=== PATIENT | female | born 1965 | race Caucasian/White ===

== ENCOUNTER 2017-12-27 07:08 | Inpatient (IN) | payer MEDICARE, MEDICAID ==
[2017-12-27 08:53] LABS: #Basophils 0.2 thou/uL (0.0-0.2); #Eosinphils 0.5 thou/uL (0.0-0.7); #Lymphocytes 3.2 thou/uL (1.20-3.40); #Monocytes 0.5 thou/uL (0.11-0.59); #Neutrophils 3.7 thou/uL (1.40-6.50); %Basophils 1.9 % (0.0-1.0); %Eosinophils 6.4 % (0.0-10.0); %Lymphocytes 39.2 % (21.0-51.0); %Monocytes 6.3 % (0.0-10.0); %Neutrophils 46.2 % (42.0-75.0); Hemoglobin 13.5 g/dL (12.0-16.0); Mean Corpuscular HGB CONC 32.5 g/dL (32.0-36.0); Mean Corpuscular Hemoglobin 31.9 pg (27.0-31.0); Mean Platelet Volume 6.5 fL (7.4-10.4); Platelet Count 428 thou/uL (130-400); RBC Distribution Width 11.9 % (11.5-14.5); Red Blood Cell (RBC) Count 4.24 mill/uL (4.20-5.40); White Blood Cell (WBC) Count 8.1 thou/uL (4.8-10.8)
[2017-12-27] MEDS ORDERED: CEFAZOLIN/Water 2 GM/20 ML SYRINGE ONE (09:00)
[2017-12-27 09:31] LABS: Anion Gap 14 mmol/L (10-20); BUN (Urea Nitrogen) 28 mg/dL (9.8-20.1); Calc. Creatinine Clearance 106 mL/min (70-130); Calcium 9.6 mg/dL (7.8-10.44); Carbon Dioxide 21 mmol/L (22-29); Chloride 107 mmol/L (98-107); Estimated GFR-MDRD 59; Glucose 116 mg/dL (70-105); Potassium 4.5 mmol/L (3.5-5.1); Sodium 137 mmol/L (136-145)
[2017-12-27] MEDS ORDERED: Sodium Chloride 0.9% 10 ML ONE (09:59)
[2017-12-27] MEDS ORDERED: Bacitracin Zinc Ointment 30 gm TUBE ONE (09:59)
[2017-12-27] MEDS ORDERED: Fentanyl 100 MCG/2 ML VIAL ONE ×6 (10:17→14:55)
[2017-12-27] MEDS ORDERED: Rocuronium Bromide 50 MG/5 ML VIAL ONE (12:53)
[2017-12-27] MEDS ORDERED: PHENYLEPHRINE-NS 100 MCG/ML 10 ML SYRINGE ONE ×2 (12:54→15:09)
[2017-12-27] MEDS ORDERED: HYDROmorphone 0.5 MG/0.5 ML SYRINGE ONE (13:26)
--- NOTE | 2017-12-27 13:56 | OP ---
DATE OF PROCEDURE: 12/27/2017 SURGEON: Markel Cha M.D. CORONER FORENSIC TECHNICIAN: Violet Dubon PA-C. PROCEDURE: Anterior cervical diskectomy C3-C6, interbody arthrodesis, intravertebral biomechanical d evice, local morselized autograft, demineralized bone matrix, anterior titanium instrumentation C3-C6 ; posterior approach C3-C6 laminectomy, posterolateral arthrodesis, lateral mass screw instrumentatio n, demineralized bone matrix, and local morselized autograft C3-C6. DESCRIPTION OF PROCEDURE: The patient brought to the operating room and intubated. She was position ed supine with the head in modest extension on a gel-filled donut. Incision was made in the right pr ecervical area and dissecting medial to the sternocleidomastoid muscle. We identified the anterior c ervical spine and our level was confirmed by x-ray. We placed distraction across the disc spaces, an d found the bony substrate to be quite soft. Using the operating microscope and microdissection tech niques, we completely removed the intravertebral disks, dissecting and decompressing to the level of the spinal cord at each affected level. The bony endplates were then decorticated for the purpose of arthrodesis and appropriately sized intravertebral biomechanical PEEK device was brought into the fi eld, filled with demineralized bone matrix and local morselized autograft, and tapped into place secu rely between C3 and C6. Next, an anterior plate was brought in the field and secured to C3, C4, C5, and C6 using two 14 mm screws at each level. The wound was then extensively irrigated, immaculate he mostasis was secured, and the wound was closed in anatomic layers over a drain. Patient was then rolled in on the new operating bed in the prone position on gel-filled chest rolls w ith the head fixed in neutral position in the calvin head control clerk. A midline cervical incision was ma de exposing C3 through C6 and our level was confirmed by x-ray. We performed complete C6, complete C 5, complete C4, and complete C3 laminectomies completely decompressing the spinal cord. Lateral mass screws were then placed at right C3, right C4, right C5, and right C6 connected by rods, secured by nuts, which were final tightened. The wound was then extensively irrigated, immaculate hemostasis wa s secured. A combination of demineralized bone matrix and local morselized autograft was laid over t he left laminar and posterolateral surfaces for the purpose of arthrodesis. Vancomycin powder was ap plied and the wound was then closed in anatomic layers over a drain.
[2017-12-27] MEDS ORDERED: Ondansetron HCl/PF 4 MG/2 ML Vial ONE (15:09)
[2017-12-27] MEDS ORDERED: Lidocaine 1% PF 5 ML VIAL ONE (15:09)
[2017-12-27] MEDS ORDERED: Esmolol 100 MG/10 ML VIAL ONE (15:09)
[2017-12-27] MEDS ORDERED: Glycopyrrolate 0.2 MG/ML 5 ML SYRINGE ONE (15:09)
[2017-12-27] MEDS ORDERED: ePHEDrine/0.9% NaCl/PF SYRINGE 50 mg/10 ml ONE (15:09)
[2017-12-27] MEDS ORDERED: diphenhydrAMINE 50 MG/ML VIAL ONE (15:09)
[2017-12-27] MEDS ORDERED: Dexamethasone 20 MG/5 ML VIAL ONE (15:09)
[2017-12-27] MEDS ORDERED: Metoclopramide HCl 10 MG/2 ML VIAL ONE (15:09)
[2017-12-27] MEDS ORDERED: Propofol 200 MG/20 ML VIAL ONE (15:09)
[2017-12-27] MEDS ORDERED: Ondansetron HCl/PF 4 MG/2 ML Vial IVP PRN (16:08)
[2017-12-27] MEDS ORDERED: Promethazine HCl 25 MG/ML VIAL SLOW IVP PRN (16:08)
[2017-12-27] MEDS ORDERED: Promethazine HCl 25 MG/ML VIAL IM PRN ×2 (16:08→16:26)
[2017-12-27] MEDS ORDERED: Bisacodyl 10 MG SUPP PR PRN (16:26)
[2017-12-27] MEDS ORDERED: traMADol HCl 50 MG TAB PO PRN (16:26)
[2017-12-27] MEDS ORDERED: Mag-Al 1200 mg/1200 mg/30 ML UDCUP PO PRN (16:26)
[2017-12-27] MEDS ORDERED: HYDROcodone/Acetaminophen 10/325 mg Tablet PO PRN (16:26)
[2017-12-27] MEDS ORDERED: Promethazine HCl 12.5 MG SUPP PR PRN (16:26)
[2017-12-27] MEDS ORDERED: Promethazine 25 MG TAB PO PRN (16:26)
[2017-12-27] MEDS ORDERED: diphenhydrAMINE 50 MG/ML VIAL IVP PRN (16:26)
[2017-12-27] MEDS ORDERED: diphenhydrAMINE 25 MG CAP PO PRN (16:26)
[2017-12-27] MEDS ORDERED: Milk Of Magnesia 30 ML UDCUP PO PRN (16:26)
--- NOTE | 2017-12-27 17:08 | EKG ---
Test Reason : PREOP Blood Pressure : / mmHG Vent. Rate : 069 BPM Atrial Rate : 069 BPM P-R Int : 174 ms QRS Dur : 102 ms QT Int : 406 ms P-R-T Axes : 062 032 079 degrees QTc Int : 435 ms Normal sinus rhythm Increased R/S ratio in V1, consider early transition or posterior infarct Abnormal ECG No previous ECGs available Confirmed by DR. Zurdo NOEL ([id number]) on 12/27/2017 5:07:52 PM Referred By: GENA Confirmed By:DR. Zurdo NOEL
[2017-12-27] MEDS: Sodium Chloride 0.9% 1,000 ML IV SCH (18:49)
[2017-12-27] MEDS ORDERED: Dextrose 5% in Water 1,000 ML IV PRN (20:07)
[2017-12-27] MEDS ORDERED: Insulin Regular 300 UNITS/3 ML VIAL SC PRN ×2 (20:07)
[2017-12-27] MEDS ORDERED: Dextrose 50% Abboject 50 ML SYRINGE SLOW IVP PRN (20:07)
--- NOTE | 2017-12-27 20:07 | PDOC.PN ---
- Subjective Encounter Start Date: 12/27/17 Encounter Start Time: 20:06 Patient seen and examined. Pain controlled. No CP/SOB. - Objective Resuscitation Status: Resuscitation Status FULL:Full Resuscitation MAR Reviewed: Yes Vital Signs & Weight: Vital Signs (12 hours) Temp Pulse Resp BP Pulse Ox 12/27/17 15:10 98.3 F 97 18 123/82 96 Weight Weight 220 lb I&O: 12/26/17 12/27/17 12/28/17 06:59 06:59 06:59 Intake Total 1550 Output Total 60 Balance 1490 Result Diagrams: 12/27/17 08:40 12/27/17 08:40 EKG Reviewed by me: Yes (SR) Phys Exam - Physical Examination Constitutional: NAD Respiratory: no wheezing, no rhonchi Cardiovascular: RRR, no rub Gastrointestinal: soft, non-tender, positive bowel sounds Musculoskeletal: no edema Neurological: moves all 4 limbs Psychiatric: A&O x 3 Dx/Plan - Plan DVT proph w/SCDs IMPRESSION: 1. DM2 2. HTN 3. HLD 4. Obesity BMI 37.8 5. Anxiety/Depression PLAN: * Resume home meds. * Cont Pulse ox * Cont Metformin * Insulin sliding scale * Will follow. Thank you for this consultation Review of Systems - Review of Systems Respiratory: negative: Cough, Dry, Shortness of Breath, Hemoptysis, SOB with Excertion, Pleuritic Pain, Sputum, Wheezing Cardiovascular: negative: chest pain, palpitations, orthopnea, paroxysmal nocturnal dyspnea, edema, light headedness Gastrointestinal: negative: Nausea, Vomiting, Abdominal Pain, Diarrhea, Constipation, Melena, Hematochezia - Medications/Allergies Allergies/Adverse Reactions: Allergies Allergy/AdvReac Type Severity Reaction Status Date / Time codeine Allergy Verified 12/24/17 09:20 Medications: Current Medications Hydrocodone Bitart/Acetaminophen ([place] 10/325) 1 tab PO Q4H PRN PRN Reason: PAIN (1-3) Hydrocodone Bitart/Acetaminophen ([place] 10/325) 2 tab PO Q4H PRN PRN Reason: PAIN (4-6) Last Admin: 12/27/17 16:53 Dose: 2 tab Al Hydroxide/Mg Hydroxide (Maalox) 30 ml PO Q4H PRN PRN Reason: Heartburn or Indigestion Bisacodyl (Dulcolax) 10 mg IN Q12H PRN PRN Reason: Constipation Cefazolin Sodium (Ancef) 2 gm SLOW IVP Q8HR [facility]IJAH Diphenhydramine HCl (Benadryl) 25 mg PO Q6H PRN PRN Reason: Itching Diphenhydramine HCl (Benadryl) 25 mg IVP Q6H PRN PRN Reason: Itching Sodium Chloride (Normal Saline 0.9%) 1,000 mls @ 75 mls/hr IV .[id number] ELIJAH Last Admin: 12/27/17 18:49 Dose: Not Given Magnesium Hydroxide (Milk Of Magnesium) 30 ml PO Q12H PRN PRN Reason: Constipation Morphine Sulfate (Morphine) 2 mg SLOW IVP Q1H PRN PRN Reason: Moderate Breakthrough Pain Last Admin: 12/27/17 19:58 Dose: 2 mg Morphine Sulfate (Morphine) 2 mg SLOW IVP Q4H PRN PRN Reason: Severe Breakthrough Pain Promethazine HCl (Phenergan) 12.5 mg IM Q4H PRN PRN Reason: Nausea/Vomiting Promethazine HCl (Phenergan) 12.5 mg PO Q4H PRN PRN Reason: Nausea/Vomiting Last Admin: 12/27/17 16:53 Dose: 12.5 mg Promethazine HCl (Phenergan Suppository) 12.5 mg IN Q4H PRN PRN Reason: Nausea/Vomiting Sodium Chloride (Flush - Normal Saline) 10 ml IVF Q12HR ELIJAH Sodium Chloride (Flush - Normal Saline) 10 ml IVF PRN PRN PRN Reason: Saline Flush Tizanidine HCl (Zanaflex) 4 mg PO Q6H PRN PRN Reason: MUSCLE SPASM Tramadol HCl (Ultram) 50 mg PO Q6H PRN PRN Reason: PAIN (1-3) Tramadol HCl (Ultram) 100 mg PO Q6H PRN PRN Reason: PAIN (4-6)
[2017-12-27] MEDS: chlorproMAZINE HCl 25 MG TAB PO SCH (20:52)
[2017-12-27] MEDS: Doxepin HCl 25 MG CAP PO SCH (20:56)
[2017-12-27] MEDS: Gabapentin 400 MG CAP PO SCH (20:59)
[2017-12-27] MEDS: metFORMIN 500 MG TAB PO SCH (21:00)
[2017-12-27] MEDS: hydrOXYzine Pamoate 25 mg Capsule PO SCH (21:00)
[2017-12-27] MEDS: CEFAZOLIN/Water 2 GM/20 ML SYRINGE SLOW IVP SCH (21:01)
[2017-12-27] MEDS: carBAMazepine 200 MG TAB PO SCH (21:01)
[2017-12-27] MEDS: HYDROcodone/Acetaminophen 10/325 mg Tablet PO PRN (21:04)
[2017-12-28] MEDS: tiZANidine HCl 4 MG TAB PO PRN ×2 (00:33→23:14)
[2017-12-28] MEDS: traMADol HCl 50 MG TAB PO PRN ×3 (00:33→20:08)
[2017-12-28] MEDS: HYDROcodone/Acetaminophen 10/325 mg Tablet PO PRN ×4 (03:25→23:13)
[2017-12-28] MEDS: Sodium Chloride 0.9% 1,000 ML IV SCH ×2 (05:31→19:40)
[2017-12-28] MEDS: CEFAZOLIN/Water 2 GM/20 ML SYRINGE SLOW IVP SCH ×3 (06:22→21:11)
[2017-12-28] MEDS: chlorproMAZINE HCl 25 MG TAB PO SCH ×2 (08:59→20:13)
[2017-12-28] MEDS: Venlafaxine HCl XR 75 MG CAP PO SCH (08:59)
[2017-12-28] MEDS: Lisinopril 20 MG TAB PO SCH (09:04)
[2017-12-28] MEDS: Gabapentin 400 MG CAP PO SCH ×4 (09:04→20:11)
[2017-12-28] MEDS: carBAMazepine 200 MG TAB PO SCH ×2 (09:04→20:11)
[2017-12-28] MEDS: hydrOXYzine Pamoate 25 mg Capsule PO SCH ×3 (09:04→20:09)
[2017-12-28] MEDS: metFORMIN 500 MG TAB PO SCH ×2 (09:04→20:15)
--- NOTE | 2017-12-28 19:14 | PDOC.PN ---
- Subjective Encounter Start Date: 12/28/17 Encounter Start Time: 18:15 Patient seen and examined. No new complaints. No overnight events - Objective Resuscitation Status: Resuscitation Status FULL:Full Resuscitation MAR Reviewed: Yes Vital Signs & Weight: Vital Signs (12 hours) Temp Pulse Pulse Resp BP BP Pulse Ox 12/28/17 16:05 97.8 F 107 H 18 90/58 L 95 12/28/17 12:00 98.3 F 105 H 20 116/72 98 12/28/17 10:41 106 H 95/55 L 12/28/17 08:00 98.0 F 97 18 12/28/17 07:35 98.0 F 97 18 96/63 96 Pulse Ox 12/28/17 16:05 12/28/17 12:00 12/28/17 10:41 96 12/28/17 08:00 12/28/17 07:35 Weight Weight 220 lb I&O: 12/27/17 12/28/17 12/29/17 06:59 06:59 06:59 Intake Total 1550 Output Total 165 Balance 1385 Result Diagrams: 12/27/17 08:40 12/27/17 08:40 Additional Labs: Accuchecks 12/28/17 12/28/17 12/28/17 17:26 11:22 05:29 POC Glucose 241 H 176 H 150 H 12/27/17 20:58 POC Glucose 224 H Phys Exam - Physical Examination Constitutional: NAD Respiratory: no wheezing, no rhonchi Cardiovascular: RRR, no rub Gastrointestinal: soft, non-tender, positive bowel sounds Musculoskeletal: no edema Dx/Plan - Plan DVT proph w/SCDs IMPRESSION: 1. DM2 2. HTN 3. HLD 4. Obesity BMI 37.8 5. Anxiety/Depression PLAN: * Cont current meds as below * Cont Metformin with sliding scale * Cont to monitor * Change diet to diabetic * Will consider adding Levemir or Glipizide in AM if sugars elevated Review of Systems - Review of Systems Respiratory: negative: Cough, Dry, Shortness of Breath, Hemoptysis, SOB with Excertion, Pleuritic Pain, Sputum, Wheezing Cardiovascular: negative: chest pain, palpitations, orthopnea, paroxysmal nocturnal dyspnea, edema, light headedness - Medications/Allergies Allergies/Adverse Reactions: Allergies Allergy/AdvReac Type Severity Reaction Status Date / Time codeine Allergy Verified 12/24/17 09:20 Medications: Current Medications Hydrocodone Bitart/Acetaminophen ([place] 10/325) 1 tab PO Q4H PRN PRN Reason: PAIN (1-3) Last Admin: 12/28/17 18:25 Dose: 1 tab Al Hydroxide/Mg Hydroxide (Maalox) 30 ml PO Q4H PRN PRN Reason: Heartburn or Indigestion Bisacodyl (Dulcolax) 10 mg MS Q12H PRN PRN Reason: Constipation Carbamazepine (Tegretol) 200 mg PO BID [facility] Last Admin: 12/28/17 09:04 Dose: 200 mg Cefazolin Sodium (Ancef) 2 gm SLOW IVP Q8HR [facility] Last Admin: 12/28/17 14:45 Dose: 2 gm Chlorpromazine HCl (Thorazine) 200 mg PO BID [facility] Last Admin: 12/28/17 08:59 Dose: 200 mg Dextrose/Water (Dextrose 50%) 25 gm SLOW IVP PRN PRN PRN Reason: Hypoglycemia Diphenhydramine HCl (Benadryl) 25 mg PO Q6H PRN PRN Reason: Itching Doxepin HCl (Sinequan) 100 mg PO HS [facility] Last Admin: 12/27/17 20:56 Dose: 100 mg Gabapentin (Neurontin) 800 mg PO QID [facility] Last Admin: 12/28/17 18:22 Dose: 800 mg Glucagon (Glucagon) 1 mg IM PRN PRN PRN Reason: Hypoglycemia Hydroxyzine Pamoate (Vistaril) 100 mg PO TID [facility] Last Admin: 12/28/17 14:46 Dose: 100 mg Sodium Chloride (Normal Saline 0.9%) 1,000 mls @ 75 mls/hr IV .[id number] [facility] Last Admin: 12/28/17 05:31 Dose: Not Given Dextrose/Water (D5w) 1,000 mls @ 0 mls/hr IV .Q0M PRN; As Directed PRN Reason: Hypoglycemia Insulin Human Regular (Humulin R) 0 units SC .MILD SLIDING SCALE PRN PRN Reason: Mild Correctional Scale Insulin Human Regular (Humulin R) 0 units SC .BEDTIME SLIDING SC PRN PRN Reason: Bedtime Correctional Scale Lisinopril (Zestril) 40 mg PO QAM [facility] Last Admin: 12/28/17 09:04 Dose: 40 mg Magnesium Hydroxide (Milk Of Magnesium) 30 ml PO Q12H PRN PRN Reason: Constipation Metformin HCl (Glucophage) 500 mg PO BID [facility] Last Admin: 12/28/17 09:04 Dose: 500 mg Morphine Sulfate (Morphine) 2 mg SLOW IVP Q1H PRN PRN Reason: Moderate Breakthrough Pain Last Admin: 12/28/17 11:41 Dose: 2 mg Morphine Sulfate (Morphine) 2 mg SLOW IVP Q4H PRN PRN Reason: Severe Breakthrough Pain Promethazine HCl (Phenergan) 12.5 mg IM Q4H PRN PRN Reason: Nausea/Vomiting Promethazine HCl (Phenergan) 12.5 mg PO Q4H PRN PRN Reason: Nausea/Vomiting Last Admin: 12/27/17 16:53 Dose: 12.5 mg Promethazine HCl (Phenergan Suppository) 12.5 mg MS Q4H PRN PRN Reason: Nausea/Vomiting Sodium Chloride (Flush - Normal Saline) 10 ml IVF Q12HR [facility] Last Admin: 12/28/17 09:09 Dose: 10 ml Sodium Chloride (Flush - Normal Saline) 10 ml IVF PRN PRN PRN Reason: Saline Flush Tizanidine HCl (Zanaflex) 4 mg PO Q6H PRN PRN Reason: MUSCLE SPASM Last Admin: 12/28/17 00:33 Dose: 4 mg Tramadol HCl (Ultram) 50 mg PO Q6H PRN PRN Reason: PAIN (1-3) Tramadol HCl (Ultram) 100 mg PO Q6H PRN PRN Reason: PAIN (4-6) Last Admin: 12/28/17 09:03 Dose: 100 mg Venlafaxine [facility] (Effexor Xr) [facility] Last Admin: 12/28/17 08:59 Dose: 75 mg
[2017-12-28] MEDS: Doxepin HCl 25 MG CAP PO SCH (20:12)
[2017-12-29] MEDS: traMADol HCl 50 MG TAB PO PRN ×2 (01:52→08:29)
[2017-12-29] MEDS: HYDROcodone/Acetaminophen 10/325 mg Tablet PO PRN (05:37)
[2017-12-29] MEDS: CEFAZOLIN/Water 2 GM/20 ML SYRINGE SLOW IVP SCH ×3 (06:29→21:14)
[2017-12-29] MEDS: Lisinopril 20 MG TAB PO SCH (08:28)
[2017-12-29] MEDS: hydrOXYzine Pamoate 25 mg Capsule PO SCH (08:28)
[2017-12-29] MEDS: chlorproMAZINE HCl 25 MG TAB PO SCH (08:28)
[2017-12-29] MEDS: Venlafaxine HCl XR 75 MG CAP PO SCH (08:28)
[2017-12-29] MEDS: Gabapentin 400 MG CAP PO SCH ×2 (08:29→16:35)
[2017-12-29] MEDS: metFORMIN 500 MG TAB PO SCH (08:29)
[2017-12-29] MEDS: carBAMazepine 200 MG TAB PO SCH (08:29)
[2017-12-29] MEDS: Sodium Chloride 0.9% 1,000 ML IV SCH ×3 (10:05→22:35)
[2017-12-29] MEDS ORDERED: Naloxone HCl 0.4 mg/ml Vial ONE (14:11)
[2017-12-29 14:17] LABS: Actual Bicarbonate (HCO3a) 27.2 mEq/L (22-26); Base Excess (BEa) 0.9 mEq/L (0 (+/-) 2.5); CO2 Tension 51.6 mmHg (35.0-45.0); Hematocrit-ABG 37.3 % (36.0-47.0); Hemoglobin (Hb) 10.4 g/dL (12.0-16.0); O2 Tension (PaO2) 56.2 mmHg (80.0-100.0); pH, Arterial 7.34 (7.35-7.45)
[2017-12-29 14:18] LABS: Analyzer IN Cardio ER; Calcium, Ionized 1.2 mmol/L (1.12-1.30); Puncture Site RRA
[2017-12-29] MEDS ORDERED: Acetaminophen 325 MG TAB PO PRN (14:33)
[2017-12-29] MEDS ORDERED: Acetaminophen 650 MG Suppository PR PRN (14:33)
[2017-12-29 14:40] LABS: #Basophils 0.1 thou/uL (0.0-0.2); #Eosinphils 0.1 thou/uL (0.0-0.7); #Lymphocytes 2.4 thou/uL (1.20-3.40); #Monocytes 1.4 thou/uL (0.11-0.59); #Neutrophils 6.6 thou/uL (1.40-6.50); %Basophils 0.9 % (0.0-1.0); %Eosinophils 1.2 % (0.0-10.0); %Monocytes 12.7 % (0.0-10.0); %Neutrophils 62.1 % (42.0-75.0); Hemoglobin 11.3 g/dL (12.0-16.0); Mean Corpuscular HGB CONC 32.8 g/dL (32.0-36.0); Mean Corpuscular Volume 97.7 fl (81.0-99.0); Mean Platelet Volume 6.4 fL (7.4-10.4); Platelet Count 299 thou/uL (130-400); RBC Distribution Width 11.6 % (11.5-14.5); Red Blood Cell (RBC) Count 3.53 mill/uL (4.20-5.40); White Blood Cell (WBC) Count 10.6 thou/uL (4.8-10.8)
[2017-12-29] MEDS ORDERED: Sodium Chloride 0.9% 1,000 ML IV SCH (14:45)
[2017-12-29 14:51] LABS: ALT (SGPT) 34 U/L (8-55); AST (SGOT) 21 U/L (5-34); Albumin 3.8 g/dL (3.5-5.0); Alkaline Phosphatase 59 U/L (40-150); Anion Gap 11 mmol/L (10-20); BUN (Urea Nitrogen) 16 mg/dL (9.8-20.1); Bilirubin, Total 0.3 mg/dL (0.2-1.2); Calc. Creatinine Clearance 110 mL/min (70-130); Calcium 8.9 mg/dL (7.8-10.44); Carbon Dioxide 28 mmol/L (22-29); Chloride 99 mmol/L (98-107); Estimated GFR-MDRD 62; Globulin 2.2 g/dL (2.4-3.5); Glucose 193 mg/dL (70-105); Magnesium 1.6 mg/dL (1.6-2.6); Potassium 4.8 mmol/L (3.5-5.1); Sodium 133 mmol/L (136-145)
[2017-12-29 15:01] LABS: Troponin I Less than 0.010 ng/mL (< 0.028)
[2017-12-29 15:12] VITALS: BMI 38.2
--- NOTE | 2017-12-29 15:34 | RAD ---
PORTABLE AP CHEST XRAY: DATE: 12/29/17. HISTORY: Altered mental status. Post Code Green. COMPARISON: None available. FINDINGS: Cardiac silhouette is magnified by projection. Pulmonary vasculature is within normal limits. There is mild atelectasis present at the right lung base. Lungs are otherwise clear. Remote bilateral ri b fractures are present. Postsurgical changes of the lower cervical spine are noted. Surgical clips overlie the right upper quadrant. IMPRESSION: 1. No acute cardiopulmonary process. 2. Atelectasis right lung base. 3. Remote bilateral rib fractures. POS: [facility]
--- NOTE | 2017-12-29 16:59 | CON ---
DATE OF CONSULTATION: 12/29/2017 SERVICE: Pulmonary Medicine. REASON FOR CONSULTATION: Respiratory failure. HISTORY OF PRESENT ILLNESS: Patient is a 52-year-old white female who recently underwent an elective operation on 12/27/2017. The postop course was uncomplicated. This is a neck surgery and she underwent anterior cervical diskectomy and posterior approach laminectomy of C3-C6. There is titanium instrumentation. She is being considered for discharge today. She was having some neck discomfort this morning and she got a small dose of tramadol. Later on, she was difficult to arouse and little confused. An ABG demonstrated acute hypercapnic respiratory failure and she was subsequently brought to the ICU. She is a little bit sleepy, but when you wake her up, she is fully awake and oriented. She denies any current shortness of breath, chest pain. She is coughing. She is bringing up a little bit of clear sputum. Outside of this, there has been no interval change to her condition. PAST MEDICAL HISTORY: 1. Hypertension. 2. Dyslipidemia. 3. Type 2 diabetes mellitus. 4. Anxiety disorder. 5. Major depressive disorder. PAST SURGICAL HISTORY: 1. Hysterectomy. 2. Appendectomy. 3. section. 4. Tubal ligation. 5. Foot surgeries, bilateral. 6. Hemorrhoidectomy. 7. Neck surgery, postop day #2. FAMILY HISTORY: Noncontributory. SOCIAL HISTORY: Unknown, patient is not able to provide this history at this time. ALLERGIES: CODEINE. MEDICATIONS: List of her outpatient medications were reviewed and include doxepin, gabapentin, hydrocodone, lisinopril, meloxicam, venlafaxine, carbamazepine, chlorpromazine, hydroxyzine, and metformin. REVIEW OF SYSTEMS: This cannot be obtained because patient's increasing level of sleepiness. PHYSICAL EXAMINATION: VITAL SIGNS: Afebrile with a T-max of 99.1, pulse 119, blood pressure 80/52, respirations 20, saturations 99% on 2 liters nasal cannula after coughing up a mucus plug. HEENT: Normocephalic, atraumatic. Sclerae are white, conjunctivae pink. Oral mucosa is moist without lesions. LUNGS: Decent air entry. Rhonchi are present. There is expiratory wheezing, but it is coming from a large airway. No rhonchi or crackles are appreciated. HEART: Normal rate, regular. ABDOMEN: Soft, nontender, and nondistended. Bowel sounds are positive. MUSCULOSKELETAL: No cyanosis or clubbing. There is no pitting in the bilateral lower extremities. NEUROLOGIC: Grossly nonfocal. LABORATORY DATA: WBC 10.6, hemoglobin 11.3, and platelets 299,000. PH 7.34, pCO2 51, pO2 56. This corresponds with saturation of 89% on 3 liters nasal cannula. Sodium 133. Basic metabolic profile and liver function studies are otherwise unremarkable. Troponin is negative, ammonia is normal. Specifically , BUN is normal at 16. IMAGING: Chest x-ray demonstrates atelectasis of the right lower lobe. Remote bilateral rib fractures. No acute cardiopulmonary abnormalities otherwise identified. ASSESSMENT: 1. Acute hypoxic and hypercapnic respiratory failure. 2. Metabolic encephalopathy. 3. Type 2 diabetes mellitus DISCUSSION AND PLAN: The patient's oxygen saturation abruptly improved after she coughed up a plug of mucus. We have her back on room air right now. She remains a little bit extra sleepy. She is demonstrating asterixis. Ammonia level was normal. Her BUN was also normal. My suspicion is that we are dealing with an acute hypercapnia. Hopefully, this will clear in a very brief period of time. We will avoid any type of sedating medications. She will be watched in the ICU closely over the next 24 hours. If she becomes increasingly somnolent, BiPAP will be attempted, but ultimately, she may require intubation. Pulmonary or Critical Care will continue to follow. 70 minutes have been devoted to this patient in various activities. I personally reviewed all imaging studies and laboratory data noted within this document. For greater than fifty percent of this time, I was interacting with the patient at the bedside or coordinating care with the care team. For the remainder of the time I was immediately available to the patient in the hospital unit. VANESSA
--- NOTE | 2017-12-29 23:32 | PDOC.PN ---
- Subjective Encounter Start Date: 12/29/17 Encounter Start Time: 15:00 Patient seen and examined during code green - lethargic - following commands. Responded to Narcan. No overnight events - Objective Resuscitation Status: Resuscitation Status FULL:Full Resuscitation MAR Reviewed: Yes Vital Signs & Weight: Vital Signs (12 hours) Temp Pulse Pulse Pulse Pulse Pulse Resp 12/29/17 20:00 98.7 F 111 H 17 12/29/17 18:42 114 H 20 12/29/17 16:00 99.9 F H 12/29/17 14:30 98.2 F 118 H 17 12/29/17 14:25 12/29/17 14:01 120 H 128 H 119 H 109 H 12/29/17 12:00 99.1 F 119 H 20 Resp Resp Resp Resp BP BP BP 12/29/17 20:00 12/29/17 18:42 12/29/17 16:00 12/29/17 14:30 12/29/17 14:25 12/29/17 14:01 18 18 16 18 80/52 L 94/60 91/47 L 12/29/17 12:00 BP BP Pulse Ox Pulse Ox Pulse Ox Pulse Ox 12/29/17 20:00 95 12/29/17 18:42 99 12/29/17 16:00 12/29/17 14:30 100 12/29/17 14:25 99 12/29/17 14:01 85/59 L 86 L 93 L 99 12/29/17 12:00 92/50 L 89 L Weight Weight 222 lb 7.143 oz Most Recent Monitor Data Heart Rate from ECG 105 NIBP 104/61 NIBP BP-Mean 76 Respiration from ECG 15 SpO2 97 I&O: 12/28/17 12/29/17 12/30/17 06:59 06:59 06:59 Intake Total 1550 766 Output Total 165 825 Balance 1385 -59 Result Diagrams: 12/30/17 04:15 12/30/17 04:15 Additional Labs: Accuchecks 12/29/17 12/29/17 12/29/17 21:23 17:08 13:58 POC Glucose 150 H 190 H 189 H 12/29/17 12/29/17 11:32 05:56 POC Glucose 178 H 158 H Phys Exam - Physical Examination Pt is lethargic Respiratory: no wheezing, no rhonchi Cardiovascular: RRR, no rub Gastrointestinal: soft, non-tender, positive bowel sounds Musculoskeletal: no edema Neuro - No new focal deficits. Dx/Plan - Plan DVT proph w/SCDs IMPRESSION: 1. s/p Code Green for Encephalopathy/Acute hypoxic & hypercapnic respiratory failure - prob due to home meds/tramadol. Unclear if patient took some of her home meds 2. HTN 3. HLD 4. Obesity BMI 37.8 5. Anxiety/Depression 6. DM2 PLAN: * Hold all of her home meds * Transfer to CCU for close monitoring * NIPPV * Consult Critical care * Cont other meds as below * Cont Metformin with sliding scale Review of Systems - Review of Systems Other: Cannot obtain due to current mentation - Medications/Allergies Allergies/Adverse Reactions: Allergies Allergy/AdvReac Type Severity Reaction Status Date / Time codeine Allergy Verified 12/24/17 09:20 Medications: Current Medications Acetaminophen (Tylenol) 650 mg PO Q4H PRN PRN Reason: Headache/Fever or Mild Pain Last Admin: 12/29/17 21:13 Dose: 650 mg Acetaminophen (Tylenol) 650 mg NC Q4H PRN PRN Reason: Headache/Fever or Pain Hydrocodone Bitart/Acetaminophen ([place] 10/325) 1 tab PO Q4H PRN PRN Reason: PAIN (1-3) Last Admin: 12/29/17 05:37 Dose: 1 tab Al Hydroxide/Mg Hydroxide (Maalox) 30 ml PO Q4H PRN PRN Reason: Heartburn or Indigestion Albuterol/Ipratropium (Duoneb) 3 ml NEB [id number] [facility] Last Admin: 12/29/17 18:42 Dose: 3 ml Albuterol/Ipratropium (Duoneb) 3 ml NEB [id number] PRN PRN Reason: SOB &/or Wheezing Bisacodyl (Dulcolax) 10 mg NC Q12H PRN PRN Reason: Constipation Cefazolin Sodium (Ancef) 2 gm SLOW IVP Q8HR [facility] Last Admin: 12/29/17 21:14 Dose: 2 gm Dextrose/Water (Dextrose 50%) 25 gm SLOW IVP PRN PRN PRN Reason: Hypoglycemia Diphenhydramine HCl (Benadryl) 25 mg PO Q6H PRN PRN Reason: Itching Glucagon (Glucagon) 1 mg IM PRN PRN PRN Reason: Hypoglycemia Dextrose/Water (D5w) 1,000 mls @ 0 mls/hr IV .Q0M PRN; As Directed PRN Reason: Hypoglycemia Sodium Chloride (Normal Saline 0.9%) 1,000 mls @ 150 mls/hr IV .Q6H40M [facility] Last Admin: 12/29/17 22:35 Dose: 1,000 mls Insulin Human Regular (Humulin R) 0 units SC .MILD SLIDING SCALE PRN PRN Reason: Mild Correctional Scale Last Admin: 12/28/17 19:23 Dose: 3 unit Insulin Human Regular (Humulin R) 0 units SC .BEDTIME SLIDING SC PRN PRN Reason: Bedtime Correctional Scale Magnesium Hydroxide (Milk Of Magnesium) 30 ml PO Q12H PRN PRN Reason: Constipation Morphine Sulfate (Morphine) 2 mg SLOW IVP Q1H PRN PRN Reason: Moderate Breakthrough Pain Last Admin: 12/28/17 11:41 Dose: 2 mg Sodium Chloride (Flush - Normal Saline) 10 ml IVF Q12HR [facility] Last Admin: 12/29/17 22:36 Dose: 10 ml Sodium Chloride (Flush - Normal Saline) 10 ml IVF PRN PRN PRN Reason: Saline Flush
[2017-12-30] MEDS: HYDROcodone/Acetaminophen 10/325 mg Tablet PO PRN ×5 (01:59→18:44)
[2017-12-30] MEDS: Sodium Chloride 0.9% 1,000 ML IV SCH ×3 (04:23→20:59)
[2017-12-30 04:58] LABS: #Basophils 0.1 thou/uL (0.0-0.2); #Eosinphils 0.3 thou/uL (0.0-0.7); #Lymphocytes 2.3 thou/uL (1.20-3.40); #Monocytes 1.1 thou/uL (0.11-0.59); #Neutrophils 5.8 thou/uL (1.40-6.50); %Basophils 1.4 % (0.0-1.0); %Eosinophils 2.6 % (0.0-10.0); %Lymphocytes 24.1 % (21.0-51.0); %Monocytes 11.7 % (0.0-10.0); %Neutrophils 60.2 % (42.0-75.0); Hemoglobin 10.2 g/dL (12.0-16.0); Mean Corpuscular Hemoglobin 31.8 pg (27.0-31.0); Mean Corpuscular Volume 99.4 fl (81.0-99.0); Mean Platelet Volume 7.2 fL (7.4-10.4); Platelet Count 282 thou/uL (130-400); RBC Distribution Width 11.7 % (11.5-14.5); White Blood Cell (WBC) Count 9.7 thou/uL (4.8-10.8)
[2017-12-30] MEDS: CEFAZOLIN/Water 2 GM/20 ML SYRINGE SLOW IVP SCH (05:03)
[2017-12-30 05:28] LABS: ALT (SGPT) 22 U/L (8-55); AST (SGOT) 16 U/L (5-34); Albumin 3.4 g/dL (3.5-5.0); Alkaline Phosphatase 51 U/L (40-150); Anion Gap 12 mmol/L (10-20); BUN (Urea Nitrogen) 11 mg/dL (9.8-20.1); Bilirubin, Total 0.3 mg/dL (0.2-1.2); Calc. Creatinine Clearance 151 mL/min (70-130); Carbon Dioxide 23 mmol/L (22-29); Chloride 104 mmol/L (98-107); Estimated GFR-MDRD 88; Globulin 2.6 g/dL (2.4-3.5); Glucose 143 mg/dL (70-105); Potassium 4.4 mmol/L (3.5-5.1); Sodium 135 mmol/L (136-145)
[2017-12-30] MEDS ORDERED: Morphine 4 MG/ML Carpuject SLOW IVP PRN (11:15)
--- NOTE | 2017-12-30 14:55 | PRG ---
DATE OF SERVICE: 12/30/2017 SERVICE: Pulmonary Medicine. INTERVAL HISTORY: The patient is doing fine from a cardiovascular and respiratory standpoint. She i s awake and alert. She is on room air. She denies any current fevers, chills, nausea or vomiting. She is having no disorientation today. Otherwise, she is returning to her usual state of health. OBJECTIVE: VITAL SIGNS: Afebrile, pulse 104, blood pressure 138/71, respirations 20, saturation 100% on room ai r. GENERAL: The patient is awake, alert, no apparent distress. LUNGS: Decent air entry. There are no rhonchi or wheezing present today. HEART: Normal rate, regular. ABDOMEN: Soft, nontender, nondistended. Bowel sounds are positive. MUSCULOSKELETAL: No cyanosis or clubbing. No pitting in the bilateral lower extremities. NEUROLOGIC: Grossly nonfocal. LABORATORY DATA: WBC 9.7, hemoglobin 10.2, platelets 282,000. Basic metabolic profile and liver fun ction studies are essentially unremarkable. The sodium is improving to 153. IMAGING: Chest x-ray demonstrates no acute cardiopulmonary abnormality other than some right lower l obe atelectasis. ASSESSMENT: 1. Acute hypoxic and hypercapnic respiratory failure, likely resolved. 2. Metabolic encephalopathy, resolved. 3. Type 2 diabetes mellitus. 4. Obstructive sleep apnea, suspected. DISCUSSION AND PLAN: The patient is doing fine from a cardiovascular and respiratory standpoint. At this point, I do believe that she is stable for transition out of the hospital Pulmonary Critical C are will continue to follow if she remains in this location, however. She can follow up with me in t outpatient setting to workup sleep apnea if she so desires. She screen strongly positive for this diagnosis.
--- NOTE | 2017-12-30 21:29 | PDOC.PN ---
- Subjective Encounter Start Date: 12/30/17 Encounter Start Time: 15:00 Patient seen and examined. No new complaints. No overnight events. Mentation impoved. - Objective Resuscitation Status: Resuscitation Status FULL:Full Resuscitation MAR Reviewed: Yes Vital Signs & Weight: Vital Signs (12 hours) Temp Pulse Resp BP Pulse Ox 12/30/17 20:00 97.7 F 81 19 133/64 94 L 12/30/17 18:32 92 20 98 12/30/17 16:00 98.0 F 12/30/17 15:39 78 20 100 12/30/17 12:35 104 H 20 100 12/30/17 12:00 98.4 F Weight Weight 221 lb 5.506 oz Most Recent Monitor Data Heart Rate from ECG 97 NIBP 130/78 NIBP BP-Mean 85 Respiration from ECG 15 SpO2 97 I&O: 12/29/17 12/30/17 12/31/17 06:59 06:59 06:59 Intake Total 2360 250 Output Total 2100 1850 Balance 260 -1600 Result Diagrams: 12/30/17 04:15 12/30/17 04:15 Additional Labs: Accuchecks 12/30/17 12/30/17 12/30/17 16:49 11:19 05:18 POC Glucose 151 H 154 H 161 H 12/29/17 21:23 POC Glucose 150 H Phys Exam - Physical Examination Constitutional: NAD Respiratory: no wheezing, no rhonchi Cardiovascular: RRR, no rub Gastrointestinal: soft, non-tender, positive bowel sounds Musculoskeletal: no edema Neurological: moves all 4 limbs Dx/Plan - Plan DVT proph w/SCDs IMPRESSION: 1. s/p Code Green for Encephalopathy/Acute hypoxic & hypercapnic respiratory failure - prob due to home meds/tramadol. Unclear if patient took some of her home meds 2. HTN 3. HLD 4. Obesity BMI 37.8 5. Anxiety/Depression 6. DM2 7. Suspected sleep apnea PLAN: * Will resume home meds in AM if stable * Critical care ellipta * Cont other meds as below * Cont Metformin with sliding scale Review of Systems - Review of Systems Respiratory: negative: Cough, Dry, Shortness of Breath, Hemoptysis, SOB with Excertion, Pleuritic Pain, Sputum, Wheezing Cardiovascular: negative: chest pain, palpitations, orthopnea, paroxysmal nocturnal dyspnea, edema, light headedness Gastrointestinal: negative: Nausea, Vomiting, Abdominal Pain, Diarrhea, Constipation, Melena, Hematochezia - Medications/Allergies Allergies/Adverse Reactions: Allergies Allergy/AdvReac Type Severity Reaction Status Date / Time codeine Allergy Verified 12/24/17 09:20 Medications: Current Medications Acetaminophen (Tylenol) 650 mg PO Q4H PRN PRN Reason: Headache/Fever or Mild Pain Last Admin: 12/29/17 21:13 Dose: 650 mg Acetaminophen (Tylenol) 650 mg FL Q4H PRN PRN Reason: Headache/Fever or Pain Hydrocodone Bitart/Acetaminophen (Gillespie 10/325) 1 tab PO Q4H PRN PRN Reason: PAIN (1-3) Last Admin: 12/30/17 18:44 Dose: 1 tab Al Hydroxide/Mg Hydroxide (Maalox) 30 ml PO Q4H PRN PRN Reason: Heartburn or Indigestion Albuterol/Ipratropium (Duoneb) 3 ml NEB [id number] [facility] Last Admin: 12/30/17 18:32 Dose: 3 ml Albuterol/Ipratropium (Duoneb) 3 ml NEB [id number] PRN PRN Reason: SOB &/or Wheezing Bisacodyl (Dulcolax) 10 mg FL Q12H PRN PRN Reason: Constipation Dextrose/Water (Dextrose 50%) 25 gm SLOW IVP PRN PRN PRN Reason: Hypoglycemia Diphenhydramine HCl (Benadryl) 25 mg PO Q6H PRN PRN Reason: Itching Glucagon (Glucagon) 1 mg IM PRN PRN PRN Reason: Hypoglycemia Dextrose/Water (D5w) 1,000 mls @ 0 mls/hr IV .Q0M PRN; As Directed PRN Reason: Hypoglycemia Sodium Chloride (Normal Saline 0.9%) 1,000 mls @ 75 mls/hr IV .[id number] [facility] Last Admin: 12/30/17 20:59 Dose: 1,000 mls Insulin Human Regular (Humulin R) 0 units SC .MILD SLIDING SCALE PRN PRN Reason: Mild Correctional Scale Last Admin: 12/28/17 19:23 Dose: 3 unit Insulin Human Regular (Humulin R) 0 units SC .BEDTIME SLIDING SC PRN PRN Reason: Bedtime Correctional Scale Magnesium Hydroxide (Milk Of Magnesium) 30 ml PO Q12H PRN PRN Reason: Constipation Morphine Sulfate (Morphine Sulfate) 2 mg SLOW IVP Q1H PRN PRN Reason: Moderate Breakthrough Pain Sodium Chloride (Flush - Normal Saline) 10 ml IVF Q12HR ELIJAH Last Admin: 12/30/17 20:59 Dose: 10 ml Sodium Chloride (Flush - Normal Saline) 10 ml IVF PRN PRN PRN Reason: Saline Flush
[2017-12-30] MEDS ORDERED: Senokot S 8.6-50 MG TAB PO SCH (21:45)
[2017-12-31] MEDS: HYDROcodone/Acetaminophen 10/325 mg Tablet PO PRN ×3 (00:58→10:13)
[2017-12-31] MEDS ORDERED: Senokot S 8.6-50 MG TAB PO SCH (09:00)
[2017-12-31 12:26] VITALS: BP 165/110; TEMP 98.4
--- NOTE | 2017-12-31 15:41 | PRG ---
DATE OF SERVICE: 12/31/2017 SERVICE: Pulmonary Medicine. INTERVAL HISTORY: The patient is doing fantastic from a breathing standpoint. She denies any curren t fevers, chills, nausea or vomiting. She has been up walking the hallways. She had a dressing lozada ge today and this provided her with a little bit of discomfort, but outside of that, she is not havin g any pain. PHYSICAL EXAMINATION: VITAL SIGNS: Afebrile. Pulse 86, blood pressure 165/110, respirations 15 and saturation 97% on room air. GENERAL: The patient is awake and alert in no apparent distress. LUNGS: Excellent air entry with no prolonged expiratory phase, wheezing, rhonchi or crackles. HEART: Normal rate and regular. ABDOMEN: Soft, nontender and nondistended. Bowel sounds are positive. MUSCULOSKELETAL: No cyanosis or clubbing. There is no pitting in the bilateral lower extremities. NEUROLOGIC: Grossly nonfocal. ASSESSMENT: 1. Metabolic encephalopathy, resolved. 2. Acute hypoxic and hypercapnic respiratory failure, resolved. 3. Type 2 diabetes mellitus. 4. Obstructive sleep apnea, suspected. DISCUSSION AND PLAN: The patient remains hemodynamically stable for transition out of the hospital. From a respiratory standpoint, she is doing fantastic. She has no additional inpatient requirements for pulmonary critical care opinion and I will sign off. Call with additional questions or concerns . I have her return to clinic in 2-4 weeks in the outpatient setting to formally evaluate for sleep apnea.
== END 2017-12-31 13:14 | disposition home or self-care (01) | DRG 453 ==
LOC: SURG A 07:08 → CCU 12-29 14:25 → SURG B 12-30 17:50
PROVIDERS: ADMIT Neurological Surgery; ATTEND Neurological Surgery
PROC: 0RG20A0 Fusion of 2 or more Cervical Vertebral Joints with Interbody Fusion Device, Anterior Approach, Anterior Column, Open Approach (ICD-10-PCS; principal; 2017-12-27)
PROC: 0RG20K1 Fusion of 2 or more Cervical Vertebral Joints with Nonautologous Tissue Substitute, Posterior Approach, Posterior Column, Open Approach (ICD-10-PCS; 2017-12-27)
PROC: 00NW0ZZ Release Cervical Spinal Cord, Open Approach (ICD-10-PCS; 2017-12-27)
PROC: 0RT30ZZ Resection of Cervical Vertebral Disc, Open Approach (ICD-10-PCS; 2017-12-27)
DX: M47.12 Other spondylosis with myelopathy, cervical region (principal); G93.41 Metabolic encephalopathy; J96.01 Acute respiratory failure with hypoxia; J96.02 Acute respiratory failure with hypercapnia; M50.021 Cervical disc disorder at C4-C5 level with myelopathy; M48.02 Spinal stenosis, cervical region; E11.9 Type 2 diabetes mellitus without complications; G47.33 Obstructive sleep apnea (adult) (pediatric); I10 Essential (primary) hypertension; E78.5 Hyperlipidemia, unspecified; F41.9 Anxiety disorder, unspecified; F32.9 Major depressive disorder, single episode, unspecified; Z88.5 Allergy status to narcotic agent; F17.210 Nicotine dependence, cigarettes, uncomplicated; E66.9 Obesity, unspecified; Z68.37 Body mass index [BMI] 37.0-37.9, adult
CPT/HCPCS: 36415; 36416; 71045; 76001; 80048; 80053; 82140; 82805; 83735; 84484; 85025; 93005; 93010; 94640; A4216; C1713; C1768; C1776; G8978-GP-CL; G8979-GP-CJ; G8987-GO-CK; G8988-GO-CI; J1100; J1170; J1200; J1815; J2001; J2270; J2310; J2405; J2704; J2765; J3010; J3370; J3490; J7620; Q0161; Q0177

== ENCOUNTER 2018-01-11 10:01 | Outpatient (CLI) | payer MEDICARE, MEDICAID ==
--- NOTE | 2018-01-11 11:53 | RAD ---
THREE VIEWS CERVICAL SPINE: HISTORY: Neck pain, post surgery. TECHNIQUE: AP, lateral, and open-mouth odontoid views of the cervical spine are obtained. FINDINGS: Images demonstrate ACDF with anterior fusion of the C3, C4, C5, and C6 levels. Right-sided posterior pedicle screws and posterior fusion hardware also present at the same levels. Posterior skin roger also present. IMPRESSION: Anterior cervical diskectomy and fusion and fusion of the C3, C4, C5, and C6 vertebral levels. No ev idence of fractures or hardware displacement seen. POS: CADE
== END 2018-01-11 10:02 | disposition home or self-care (01) ==
LOC: TBSIIMAG 10:01
PROVIDERS: ATTEND Neurological Surgery
DX: M54.2 Cervicalgia (principal); Z98.1 Arthrodesis status; Z98.890 Other specified postprocedural states
CPT/HCPCS: 72040